=== PATIENT | male | born 1980 | race Caucasian/White ===

== ENCOUNTER 2017-07-13 10:33 | Emergency (ER) | payer MEDICAID ==
--- NOTE | 2017-07-13 11:49 | EDM.PDOC ---
ED HPI GENERAL MEDICAL PROBLEM - General Chief Complaint: ENT Problem Stated Complaint: PLUGGED EARS/COLD Time Seen by Provider: 07/13/17 11:23 Source of Information: Reports: Patient History Limitations: Reports: No Limitations - History of Present Illness INITIAL COMMENTS - FREE TEXT/NARRATIVE: 37 yo male presents to ER with nasal congestion and frontal headache. Also complains of plugged ears. He has Remicade infusion scheduled for Friday tx of ulcerated colitis. Has had symptoms for 3 days. fatigue, chills and body aches. Has not tried OTC medication for relief. - Related Data Allergies Allergy/AdvReac Type Severity Reaction Status Date / Time amoxicillin [Amoxicillin] Allergy Cannot Verified 07/13/17 11:29 Remember Penicillins Allergy Rash Verified 07/13/17 11:29 Home Meds: Home Meds InFLIXimab [Remicade] 100 mg IV 12/03/13 [History] azaTHIOprine [Imuran] 50 mg PO BID 12/03/13 [History] Past Medical History - Past Surgical History GI Surgical History: Reports: Colostomy Other GI Surgeries/Procedures: LARGE INTESTINAL REMOVAL, COLOSTOMY REVISION, CROHN'S DISEASE Other Musculoskeletal Surgeries/Procedures:: BILAT BUNIONECTOMY Social & Family History - Tobacco Use Smoking Status *Q: Unknown Ever Smoked Years of Tobacco use: 15 - Recreational Drug Use Recreational Drug Use: Yes Drug Use in Last 12 Months: Yes Recreational Drug Type: Reports: Marijuana/Hashish, Methamphetamine Recreational Drug Use Frequency: Daily ED ROS ENT - Review of Systems Review Of Systems: See Below Constitutional: Reports: Fever, Chills, Fatigue HEENT: Reports: Ear Discharge, Rhinitis, Sinus Problem, Throat Pain Respiratory: Denies: Shortness of Breath, Wheezing Cardiovascular: Denies: Chest Pain GI/Abdominal: Denies: Abdominal Pain, Nausea, Vomiting Skin: Denies: Rash ED EXAM, ENT - Physical Exam Exam: See Below Exam Limited By: No Limitations General Appearance: Alert, WD/WN, No Apparent Distress Ears: TM Dullness, TM Fluid (bilateral clear). No: Canal Swelling, TM Bulging, TM Erythema Nose: Nasal Discharge, Injected Turbinates Mouth/Throat: Throat Pain, Tonsillar Erythema, Tonsillar Swelling. No: Throat Swelling, Tongue Swelling, Tonsillar Exudates Head: Atraumatic, Normocephalic Neck: Normal Inspection, Supple, Non-Tender, Full Range of Motion Respiratory/Chest: No Respiratory Distress, Lungs Clear. No: Crackles, Rhonchi , Wheezing Cardiovascular: Regular Rate, Rhythm, No Murmur, No Rub GI/Abdominal: Soft, Non-Tender Skin: Warm, Dry, Intact. No: Rash Course - Vital Signs Last Recorded V/S: Last Vital Signs Temp 35.3 C 07/13/17 11:26 Pulse 69 07/13/17 11:26 Resp 16 07/13/17 11:26 BP 120/84 07/13/17 11:26 Pulse Ox 96 07/13/17 11:26 Departure - Departure Time of Disposition: 11:47 Disposition: Home, Self-Care 01 Clinical Impression: Sinusitis, acute Qualifiers: Sinusitis location: unspecified location Recurrence: non-recurrent Qualified Code(s): J01.90 - Acute sinusitis, unspecified - Discharge Information Instructions: Sinusitis, Adult, [id number] Referrals: Doc Cade MD [Primary Care Provider] - Forms: ED Department Discharge Additional Instructions: Azithromycin 500 mg daily for 5 days Tylenol 1000 mg every 6 hours as needed for headache and body aches increase fluid intake with goal of 1.5 L
== END 2017-07-13 12:04 | disposition home or self-care (01) ==
LOC: JP.ED 10:33
DX: J01.90 Acute sinusitis, unspecified (principal); Z88.1 Allergy status to other antibiotic agents; Z88.0 Allergy status to penicillin
CPT/HCPCS: 99283

== ENCOUNTER 2019-10-19 06:48 | Emergency (ER) | payer MEDICAID ==
[2019-10-19] MEDS ORDERED: Ketorolac 60 MG/2 ML SDV IM ONE (07:33)
--- NOTE | 2019-10-19 07:38 | EDM.PDOC ---
ED HPI GENERAL MEDICAL PROBLEM - General Chief Complaint: Back Pain or Injury Stated Complaint: BACK SPASMS Time Seen by Provider: 10/19/19 07:20 Source of Information: Reports: Patient History Limitations: Reports: No Limitations - History of Present Illness INITIAL COMMENTS - FREE TEXT/NARRATIVE: 31-year-old male with worsening lower back pain for the past 2 days, this morning he woke up and was having "spasms" in significant discomfort. No fall or direct trauma. No radiculopathy or incontinence. Onset: Gradual Duration: Day(s): (2 days) Associated Symptoms: Reports: No Other Symptoms Lower Back Pain Score (Numeric/FACES): 10 - Related Data Allergies Allergy/AdvReac Type Severity Reaction Status Date / Time amoxicillin [Amoxicillin] Allergy Cannot Verified 10/19/19 07:05 Remember Penicillins Allergy Rash Verified 10/19/19 07:05 Home Meds: Home Meds InFLIXimab [Remicade] 100 mg IV ASDIRECTED 12/03/13 [History] Past Medical History - Past Surgical History GI Surgical History: Reports: Colostomy Other GI Surgeries/Procedures: LARGE INTESTINAL REMOVAL, COLOSTOMY REVISION, CROHN'S DISEASE Other Musculoskeletal Surgeries/Procedures:: BILAT BUNIONECTOMY Social & Family History - Tobacco Use Smoking Status *Q: Current Every Day Smoker Years of Tobacco use: 22 Packs/Tins Daily: 0.5 - Caffeine Use Caffeine Use: Reports: Coffee - Recreational Drug Use Recreational Drug Use: Yes Recreational Drug Type: Reports: Marijuana/Hashish Recreational Drug Use Frequency: Daily ED ROS GENERAL - Review of Systems Review Of Systems: See Below Constitutional: Denies: Fever, Chills Respiratory: Denies: Shortness of Breath Cardiovascular: Denies: Chest Pain GI/Abdominal: Reports: Other (Patient does have stable Crohn's disease). Denies : Abdominal Pain, Nausea, Vomiting Skin: Denies: Rash Neurological: Denies: Paresthesia ED EXAM,LOWER BACK PAIN/INJURY - Physical Exam Exam: See Below Exam Limited By: No Limitations General Appearance: Alert, No Apparent Distress Respiratory/Chest: No Respiratory Distress (Looks uncomfortable but not distressed), Lungs Clear Cardiovascular: Regular Rate, Rhythm Back Exam: Paraspinal Tenderness (Paralumbar tenderness to palpation with some tightness to the paralumbar muscles, he reacts tenderness to palpation). No: Vertebral Tenderness Neurological: Alert, Oriented x 3 Course - Vital Signs Last Recorded V/S: Last Vital Signs Temp 98.0 F 10/19/19 07:03 Pulse 107 H 10/19/19 07:03 Resp 18 10/19/19 07:03 BP 125/78 10/19/19 07:03 Pulse Ox 96 10/19/19 07:03 - Orders/Labs/Meds Meds: Medications Discontinued Medications Generic Name Dose Route Start Last Admin Trade Name Kristina PRN Reason Stop Dose Admin Ketorolac Tromethamine 60 mg 10/19/19 07:33 10/19/19 07:37 Toradol IM 10/19/19 07:34 60 mg ONETIME ONE Administration - Re-Assessments/Exams Free Text/Narrative Re-Assessment/Exam: 10/19/19 07:36 Patient was given an injection of Toradol 60 mg provide with some muscle relaxers and encouraged to continue with ibuprofen or naproxen for the next 2-3 days. Gentle stretching should help him recheck in 2 days if not improving satisfactorily. He asked several times for narcotics which I don't think are appropriate in this case. Departure - Departure Time of Disposition: 07:50 Disposition: Home, Self-Care 01 Clinical Impression: Spasm of muscle of lower back Low back pain Qualifiers: Chronicity: acute Back pain laterality: bilateral Sciatica presence: without sciatica Qualified Code(s): M54.5 - Low back pain - Discharge Information Instructions: Acute Back Pain, Adult Referrals: Christina Giordano PA [Primary Care Provider] - Forms: ED Department Discharge Care Plan Goals: Gentle stretching along with muscle relaxers and 1-2 days of ibuprofen or naproxen should be helpful. Try to increase activity as soon as possible, and recheck with her regular doctor in 2-3 days if not improving satisfactorily. Return sooner if worsening such as incontinence or significant numbness or weakness of the leg or foot. Sepsis Event Note - Evaluation Sepsis Screening Result: No Definite Risk - Focused Exam Vital Signs: Vital Signs Temp Pulse Resp BP Pulse Ox 10/19/19 07:03 98.0 F 107 H 18 125/78 96 Date Exam was Performed: 10/19/19 Time Exam was Performed: 11:24
== END 2019-10-19 07:50 | disposition home or self-care (01) ==
LOC: JP.ED 06:48
DX: M62.830 Muscle spasm of back (principal); F17.210 Nicotine dependence, cigarettes, uncomplicated; Z88.0 Allergy status to penicillin
CPT/HCPCS: 96372; 99283; J1885

== ENCOUNTER 2020-12-23 17:07 | Emergency (ER) | payer MEDICAID | END 2020-12-23 19:12 | disposition left against medical advice (07) | LOC: JP.ED 17:07 | DX: Z53.21 Procedure and treatment not carried out due to patient leaving prior to being seen by health care provider (principal) ==

== ENCOUNTER 2022-02-15 20:33 | Emergency (ER) | payer MEDICAID ==
[2022-02-15] MEDS ORDERED: Sodium Chloride 0.9% 10 ML Syringe FLUSH PRN (21:15)
[2022-02-15] MEDS ORDERED: Ketorolac 30 MG/ML SDV IVPUSH ONE (21:17)
== END 2022-02-15 22:58 | disposition home or self-care (01) ==
LOC: JP.ED 20:33
DX: R10.31 Right lower quadrant pain (principal); R10.11 Right upper quadrant pain; F17.210 Nicotine dependence, cigarettes, uncomplicated; Z88.0 Allergy status to penicillin; Z79.899 Other long term (current) drug therapy
CPT/HCPCS: 36415; 74176; 80053; 85025; 96374; 99282; 99284-25; J1885; J3490

== ENCOUNTER 2023-05-07 09:24 | Emergency (ER) | payer MEDICAID | END 2023-05-07 10:56 | disposition left against medical advice (07) | LOC: JP.ED 09:24 | DX: Z53.21 Procedure and treatment not carried out due to patient leaving prior to being seen by health care provider (principal) ==

== ENCOUNTER 2023-05-28 19:16 | Emergency (ER) | payer MEDICAID ==
[2023-05-28] MEDS ORDERED: Albuterol/Ipratropium 3.0-0.5 MG/3 ML Neb Soln NEB ONE (22:04)
[2023-05-28 22:15] LABS: BASOPHILS ABSOLUTE AUTO 0.13 K/uL (0.00-0.10); EOSINOPHILS PERCENT AUTO 14.7 % (0.0-5.4); HEMATOCRIT 41.4 % (38.4-49.7); HEMOGLOBIN 13.7 g/dL (12.9-16.9); IMMATURE GRAN ABSOLUTE AUTO 0.03 K/uL (0.00-0.23); IMMATURE GRAN PERCENT AUTO 0.2 % (0.0-0.7); LYMPHOCYTES ABSOLUTE AUTO 3.02 K/uL (0.8-3.3); LYMPHOCYTES PERCENT AUTO 23.3 % (11.4-47.7); MEAN CORPUSCULAR HEMOGLOBIN 28.4 pg (31.6-35.5); MEAN CORPUSCULAR HGB CONC 33.1 g/dL (31.6-35.5); MEAN CORPUSCULAR VOLUME 85.7 fL (81.4-99.0); MONOCYTES ABSOLUTE AUTO 1.75 K/uL (0.20-0.90); MONOCYTES PERCENT AUTO 13.5 % (3.3-12.6); NEUTROPHILS ABSOLUTE AUTO 6.12 K/uL (1.0-7.6); NEUTROPHILS PERCENT AUTO 47.3 % (40.0-78.1); PLATELET COUNT,PLT 344 K/uL (130-375); RED BLOOD CELL COUNT 4.83 M/uL (4.14-5.76)
[2023-05-28 22:32] LABS: C-REACTIVE PROTEIN 0.2 mg/dL (0.0-0.3); CALCIUM 8.8 mg/dL (8.5-10.1); CREATININE 0.9 mg/dL (0.8-1.3); EST CRCL DRUG DOSING (CG) 83.26 mL/min; POTASSIUM,K 3.8 mmol/L (3.6-5.2)
[2023-05-28 22:37] LABS: ANION GAP 10.8 mmol/L (5.0-14.0)
== END 2023-05-28 23:38 | disposition home or self-care (01) ==
LOC: JP.ED 19:16
DX: J06.9 Acute upper respiratory infection, unspecified (principal); J45.909 Unspecified asthma, uncomplicated; F17.210 Nicotine dependence, cigarettes, uncomplicated; Z20.822 Contact with and (suspected) exposure to COVID-19; Z88.0 Allergy status to penicillin
CPT/HCPCS: 36415; 71046; 71046-26; 80048; 84145; 85025; 86140; 94640; 99284; 99285; J7620; U0002